=== PATIENT | female | born 1995 | race Caucasian/White ===

== ENCOUNTER 2022-04-23 09:29 | Inpatient (IN) | payer BC ==
[2022-04-23] MEDS ORDERED: Ondansetron PF 4 MG/2 ML Vial IVP PRN ×2 (09:58→15:02)
[2022-04-23] MEDS ORDERED: Misoprostol 200 MCG TAB PR PRN (09:58)
[2022-04-23] MEDS ORDERED: Lidocaine 1% (PF) 30 ML VIAL SC PRN (09:58)
[2022-04-23] MEDS ORDERED: Carboprost 250 MCG/ML AMP IM PRN (09:58)
[2022-04-23] MEDS ORDERED: Methylergonovine 0.2 MG/ML VIAL IM PRN ×2 (09:58→15:02)
[2022-04-23] MEDS ORDERED: Butorphanol Tartrate 1 MG/ML VIAL SLOW IVP PRN (09:58)
[2022-04-23] MEDS ORDERED: Promethazine HCl 25 MG/ML VIAL IM PRN (09:58)
[2022-04-23] MEDS ORDERED: Diphenoxylate HCl/Atropine Tablet PO PRN (09:58)
[2022-04-23] MEDS ORDERED: hydrALAZINE 20 MG/ML VIAL SLOW IVP PRN ×2 (09:58→15:02)
[2022-04-23] MEDS ORDERED: NS w/ Oxytocin 30 units 500 ML IV SCH ×3 (10:00→15:02)
[2022-04-23] MEDS ORDERED: Lactated Ringer's 1,000 ML IV SCH (10:00)
[2022-04-23] MEDS ORDERED: Fentanyl 2 mcg/Bup 0.1% Cadd 100 ML ONE (10:42)
[2022-04-23 10:50] LABS: Hemoglobin 11.5 g/dL (12.0-15.5); Mean Corpuscular HGB CONC 33.8 g/dL (32.0-36.0); Mean Corpuscular Hemoglobin 29.3 pg (27.0-33.0); Mean Corpuscular Volume 86.5 fl (81.6-98.3); Mean Platelet Volume 11.8 fl (7.4-10.4); Platelet Count 155 10x3/uL (150-450); RBC Distribution Width 14.2 % (11.5-14.5); Red Blood Cell (RBC) Count 3.93 10x6/uL (3.90-5.03)
[2022-04-23 11:08] LABS: SARS-CoV-2 NAA Rapid Test DETECTED (NotDetected)
[2022-04-23 11:29] LABS: HBSAg Index 0.23 S/CO (0-0.99); Hep B Surf Ag Non-Reactive S/CO (NonReactive); Syphilis Antibody Nonreactive (Nonreactive); Syphilis Antibody Index 0.03 S/CO (<1.00 Non-Reactive)
[2022-04-23] MEDS ORDERED: Bisacodyl 10 MG SUPP PR PRN (15:02)
[2022-04-23] MEDS ORDERED: Preparation H Ointment 28 GM TUBE PR PRN (15:02)
[2022-04-23] MEDS ORDERED: Milk Of Magnesia 30 ML UDCUP PO PRN (15:02)
[2022-04-23] MEDS ORDERED: Benzocaine-Menthol 82.5 ML CAN TOP PRN (15:02)
[2022-04-23] MEDS ORDERED: diphenhydrAMINE 25 MG CAP PO PRN (15:02)
[2022-04-23] MEDS ORDERED: Misoprostol 200 MCG TAB VAG PRN (15:02)
[2022-04-23] MEDS ORDERED: Acetaminophen 500 MG TAB PO PRN (15:02)
[2022-04-23] MEDS ORDERED: Lanolin Ointment 7 GM TUBE TOP PRN (15:02)
[2022-04-23] MEDS ORDERED: HYDROcodone/Acetaminophen 5/325 mg Tablet PO PRN ×2 (15:02)
[2022-04-23] MEDS ORDERED: Ibuprofen 800 MG TAB PO SCH (15:15)
[2022-04-23] MEDS: Ferrous Sulfate 325 MG TAB PO SCH (22:33)
[2022-04-23] MEDS: Docusate 100 MG CAP PO SCH (22:43)
[2022-04-23] MEDS: Ibuprofen 800 MG TAB PO SCH (22:43)
[2022-04-23] MEDS: guaiFENesin ER 600 MG TAB PO SCH (22:46)
[2022-04-24] MEDS: Ibuprofen 800 MG TAB PO SCH ×3 (06:17→21:33)
[2022-04-24] MEDS ORDERED: Prenatal Vitamin 1 TAB PO SCH (09:00)
[2022-04-24] MEDS: Ferrous Sulfate 325 MG TAB PO SCH ×2 (10:52→16:20)
[2022-04-24] MEDS: Docusate 100 MG CAP PO SCH ×2 (10:52→21:33)
[2022-04-24] MEDS: guaiFENesin ER 600 MG TAB PO SCH ×2 (10:53→21:36)
[2022-04-24 20:15] VITALS: TEMP 98.3
[2022-04-25] MEDS: Ibuprofen 800 MG TAB PO SCH (05:00)
[2022-04-25 09:06] VITALS: BP 119/82
== END 2022-04-25 13:45 | disposition home or self-care (01) | DRG 805 ==
LOC: CSHLD/OP 09:29 → CSHLD 13:48 → CSHANTE 22:24
PROVIDERS: ADMIT Obstetrics & Gynecology; ATTEND Obstetrics & Gynecology
PROC: 10E0XZZ Delivery of Products of Conception, External Approach (ICD-10-PCS; principal; 2022-04-23)
PROC: 8E0ZXY6 Isolation (ICD-10-PCS; 2022-04-23)
DX: O98.52 Other viral diseases complicating childbirth (principal); U07.1 COVID-19; Z37.0 Single live birth; Z3A.37 37 weeks gestation of pregnancy; E03.9 Hypothyroidism, unspecified; O99.284 Endocrine, nutritional and metabolic diseases complicating childbirth; O42.02 Full-term premature rupture of membranes, onset of labor within 24 hours of rupture; Z91.018 Allergy to other foods; O70.0 First degree perineal laceration during delivery; Z79.890 Hormone replacement therapy; Z79.899 Other long term (current) drug therapy
CPT/HCPCS: 51702; 85027; 86780; 86850; 86900; 86901; 87340; 99285; J2001; J2590; U0002

== ENCOUNTER 2025-04-28 10:02 | Outpatient (CLI) | payer BC | END 2025-04-28 10:03 | disposition home or self-care (01) | LOC: CSHLAB 10:02 | PROVIDERS: ATTEND Obstetrics & Gynecology | DX: Z01.812 Encounter for preprocedural laboratory examination (principal); O82 Encounter for cesarean delivery without indication | CPT/HCPCS: 85014; 85018; 85049; 86780; 86850; 86900; 86901; 87340 ==

== ENCOUNTER 2025-05-01 09:59 | Inpatient (IN) | payer BC ==
[2025-04-28 11:14] LABS: Hematocrit 34.2 % (34.9-44.5); Hemoglobin 11.4 g/dL (12.0-15.5); Platelet Count 212 10x3/uL (150-450)
[2025-04-28 12:07] LABS: Hep B Surf Ag Non-Reactive S/CO (NonReactive)
[2025-04-28 12:08] LABS: Syphilis Antibody Index 0.06 S/CO (<1.00 Non-Reactive)
[2025-05-01 11:10] VITALS: BMI 22.7
[2025-05-01] MEDS ORDERED: hydrALAZINE 20 MG/ML VIAL SLOW IVP PRN ×2 (11:12→21:12)
[2025-05-01] MEDS ORDERED: Bicitra 30 ML UDCUP PO PRN (11:12)
[2025-05-01] MEDS ORDERED: Ondansetron PF 4 MG/2 ML Vial IVP PRN ×3 (11:12→12:58)
[2025-05-01] MEDS ORDERED: Oxytocin 30 units/NS 500 ML 500 ML IV SCH ×2 (11:12→21:30)
[2025-05-01] MEDS: Famotidine/PF 20 mg/2ml Vial SLOW IVP PRN (11:51)
[2025-05-01] MEDS ORDERED: diphenhydrAMINE 50 MG/ML VIAL IVP PRN (12:58)
[2025-05-01] MEDS ORDERED: Meperidine HCl/PF 25 MG (1 mL) VIAL SLOW IVP PRN (12:58)
[2025-05-01] MEDS ORDERED: HYDROmorphone 0.5 MG/0.5 ML SYRINGE SLOW IVP PRN (12:58)
[2025-05-01] MEDS ORDERED: Communication Order-Pharmacy FS SCH (13:00)
[2025-05-01] MEDS: Ketorolac Tromethamine 30 MG (1 mL) VIAL IVP SCH (13:21)
[2025-05-01] MEDS: Ondansetron PF 4 MG/2 ML Vial ONE (18:38)
[2025-05-01] MEDS ORDERED: Simethicone Chewable 80 MG TAB PO PRN (21:12)
[2025-05-01] MEDS ORDERED: Acetaminophen 325 MG TAB PO PRN (21:12)
[2025-05-01] MEDS ORDERED: diphenhydrAMINE 25 MG CAP PO PRN (21:12)
[2025-05-01] MEDS ORDERED: Bisacodyl 10 MG SUPP PR PRN (21:12)
[2025-05-01] MEDS ORDERED: Lanolin Ointment 7 GM TUBE TOP PRN (21:12)
[2025-05-01] MEDS: Ketorolac Tromethamine 30 MG (1 mL) VIAL IVP PRN (22:15)
[2025-05-01] MEDS: Ondansetron PF 4 MG/2 ML Vial IVP PRN (22:15)
[2025-05-01] MEDS: PHENYLEPHRINE-NS 100 MCG/ML 10 ML SYRINGE ONE (22:30)
[2025-05-01] MEDS: Oxytocin 10 UNITS/ML VIAL ONE (22:30)
[2025-05-01] MEDS: Ferrous Sulfate 325 MG TAB PO SCH (22:32)
[2025-05-02] MEDS ORDERED: HYDROcodone/Acetaminophen 5/325 mg Tablet PO PRN ×2 (01:00)
[2025-05-02 04:04] LABS: Hematocrit 29.4 % (34.9-44.5); Hemoglobin 9.3 g/dL (12.0-15.5); Mean Corpuscular Hemoglobin 27.9 pg (27.0-33.0); Mean Corpuscular Volume 88.3 fL (81.6-98.3); Platelet Count 146 10x3/uL (150-450); Red Blood Cell (RBC) Count 3.33 10x6/uL (3.90-5.03); White Blood Cell (WBC) Count 8.12 10x3/uL (3.5-10.5)
[2025-05-02] MEDS: Ferrous Sulfate 325 MG TAB PO SCH (08:18)
[2025-05-02] MEDS: Ibuprofen 800 MG TAB PO SCH (12:54)
[2025-05-03] MEDS: Boostrix 0.5 ML (Tdap) VIAL (>/=7 yrs of age) IM ONE (08:03)
[2025-05-03 11:16] VITALS: BP 101/66; TEMP 98.3
== END 2025-05-03 12:55 | disposition home or self-care (01) | DRG 788 ==
LOC: CSHLD 09:59 → CSHPP 20:50
PROVIDERS: ADMIT Obstetrics & Gynecology; ATTEND Obstetrics & Gynecology
PROC: 10D00Z1 Extraction of Products of Conception, Low, Open Approach (ICD-10-PCS; principal; 2025-05-01)
PROC: 4A1HXCZ Monitoring of Products of Conception, Cardiac Rate, External Approach (ICD-10-PCS; 2025-05-01)
DX: O34.211 Maternal care for low transverse scar from previous cesarean delivery (principal); Z3A.37 37 weeks gestation of pregnancy; Z98.890 Other specified postprocedural states; Z79.899 Other long term (current) drug therapy; Z91.018 Allergy to other foods; Z37.0 Single live birth
CPT/HCPCS: 36415; 51702; 85014; 85018; 85027; 85049; 86780; 86850; 86900; 86901; 87340; J1885; J2250; J2274; J2590